=== PATIENT | female | born 1990 | race Caucasian/White ===

== ENCOUNTER 2020-12-30 12:06 | Inpatient (IN) | payer BC ==
[~2020-12-30] VITALS: Ht 154.9 cm; Wt 92.7 kg
[2020-12-30] MEDS ORDERED: ONDANSETRON PF 4 MG/2 ML VIAL. IVP ONE ×2 (12:45→15:00)
[2020-12-30] MEDS ORDERED: IV NORMAL SALINE 1,000ML 1,000 ML IV ONE ×2 (12:45→15:45)
[2020-12-30 12:48] LABS: BASO % 0 % (0-3); EOS % 0 % (0-3); HEMATOCRIT 48.3 % (36.0-47.0); HEMOGLOBIN 16.8 g/dL (12.0-15.5); LYMPH # 0.9 x10^3/uL (1.0-4.8); LYMPH % 24 % (24-48); MEAN CORPUSCULAR HEMOGLOBIN 32 pg (25-35); MEAN CORPUSCULAR HGB CONC 35 g/dL (31-37); MEAN CORPUSCULAR VOLUME 91 fL (79-100); MONO # 0.3 x10^3/uL (0.0-1.1); MONO % 7 % (0-9); NEUT # 2.7 x10^3uL (1.8-7.7); NEUT % 69 % (31-73); PLATELET COUNT 128 x10^3/uL (140-400); RED CELL DISTRIBUTION WIDTH 12.9 % (11.5-14.5); WHITE BLOOD COUNT 3.9 x10^3/uL (4.0-11.0)
[2020-12-30 12:50] LABS: CALCIUM 8.6 mg/dL (8.5-10.1); CREATININE 0.7 mg/dL (0.6-1.0); GFR 99.6; POTASSIUM 3.9 mmol/L (3.5-5.1)
--- NOTE | 2020-12-30 12:51 | PHYS DOC ---
Past History Past Surgical History: No Surgical History (JOSE ANTONIO PEREZ APRN) Alcohol Use: None (JOSE ANTONIO PEREZ APRN) General Adult EDM: Chief Complaint: COUGH HPI: HPI: Patient is a 30-year-old female who is Covid positive diagnosed on Wednesday who presents to the ER for cough, nausea, vomiting, nasal congestion/drainage, low- grade fluids started yesterday. No treatment prior to arrival. Patient reports intermittent shortness of breath. She denies any chest pain, blood in stools or vomit. She is tachycardic in the ER. Afebrile. (JOSE ANTONIO PEREZ APRN) Review of Systems: Review of Systems: 14 body systems of the review of systems have been reviewed. See HPI for pertinent positive and negative responses, otherwise all other systems are negative, nonpertinent or noncontributory (JOSE ANTONIO PEREZ APRN) Current Medications: Current Meds: Current Medications Medications (Trade) Dose Ordered Sig/Artur Start Time Stop Time Status Last Admin Dose Admin Ondansetron HCl (Zofran) 4 mg 1X ONCE 12/30/20 12:45 12/30/20 12:46 UNV Sodium Chloride 1,000 ml @ 1,000 mls/hr 1X ONCE 12/30/20 12:45 12/30/20 13:44 UNV (JOSE ANTONIO PEREZ APRN) Allergies: Allergies: Allergies Coded Allergies Type Severity Reaction Last Updated Verified latex Allergy Mild 12/30/20 Yes (JOSE ANTONIO PEREZ APRN) Physical Exam: PE: Constitutional: Well developed, well nourished, no acute distress, non-toxic appearance. [] HENT: Normocephalic, atraumatic, bilateral external ears normal, oropharynx moist, no oral exudates, nose normal. [] Eyes: PERRL, EOMI, conjunctiva normal, no discharge. [] Neck: Normal range of motion, no stridor Cardiovascular:Heart rate tachycardic rhythm, no murmur [] Lungs & Thorax: Bilateral breath sounds clear to auscultation [] Abdomen: Bowel sounds normal, soft, no tenderness, no masses, no pulsatile masses. [] Skin: Warm, dry, no erythema, no rash. [] Back: Normal range of motion Extremities: No tenderness, no cyanosis, no clubbing, ROM intact, no edema. [] Neurologic: Alert and oriented X 3, normal motor function, normal sensory function, no focal deficits noted. [] Psychologic: Affect normal, judgement normal, mood normal. [] (JOSE ANTONIO PEREZ APRN) Current Patient Data: Labs: Laboratory Tests Test 12/30/20 12:20 White Blood Count 3.9 x10^3/uL Red Blood Count 5.30 x10^6/uL Hemoglobin 16.8 g/dL Hematocrit 48.3 % Mean Corpuscular Volume 91 fL Mean Corpuscular Hemoglobin 32 pg Mean Corpuscular Hemoglobin Concent 35 g/dL Red Cell Distribution Width 12.9 % Platelet Count 128 x10^3/uL Neutrophils (%) (Auto) 69 % Lymphocytes (%) (Auto) 24 % Monocytes (%) (Auto) 7 % Eosinophils (%) (Auto) 0 % Basophils (%) (Auto) 0 % Neutrophils # (Auto) 2.7 x10^3uL Lymphocytes # (Auto) 0.9 x10^3/uL Monocytes # (Auto) 0.3 x10^3/uL Eosinophils # (Auto) 0.0 x10^3/uL Basophils # (Auto) 0.0 x10^3/uL Sodium Level 135 mmol/L Potassium Level 3.9 mmol/L Chloride Level 98 mmol/L Carbon Dioxide Level 26 mmol/L Anion Gap 11 Blood Urea Nitrogen 6 mg/dL Creatinine 0.7 mg/dL Estimated GFR (Cockcroft-Gault) 99.6 BUN/Creatinine Ratio 9 Glucose Level 323 mg/dL Calcium Level 8.6 mg/dL Total Bilirubin 0.7 mg/dL Aspartate Amino Transf (AST/SGOT) 151 U/L Alanine Aminotransferase (ALT/SGPT) 170 U/L Alkaline Phosphatase 116 U/L Troponin I Quantitative < 0.017 ng/mL Total Protein 7.2 g/dL Albumin 3.6 g/dL Albumin/Globulin Ratio 1.0 Current Medications Medications (Trade) Dose Ordered Sig/Artur Route PRN Reason Start Time Stop Time Status Last Admin Dose Admin Sodium Chloride 1,000 ml @ 1,000 mls/hr 1X ONCE IV 12/30/20 12:45 12/30/20 13:44 12/30/20 12:45 Ondansetron HCl (Zofran) 4 mg 1X ONCE IVP 12/30/20 12:45 12/30/20 12:46 DC 12/30/20 12:45 Vital Signs: Vital Signs Date Time Temp Pulse Resp B/P (MAP) Pulse Ox O2 Delivery O2 Flow Rate FiO2 12/30/20 12:25 99.4 133 18 149/97 95.0 (JOSE ANTONIO PEREZ APRN) EKG: EKG: EKG performed by ER staff at 1254 shows sinus tach, no STEMI. Read by Dr. Dickey at 1300. [] (JOSE ANTONIO PEREZ APRN) Radiology/Procedures: Radiology/Procedures: PROCEDURE: PORTABLE CHEST 1V XR CHEST 1V History: Short of air, cough, positive Covid. Comparison: None. Technique: Portable AP radiograph of the chest. Findings: The lungs are mildly hypoinflated. Subtle basilar opacities may represent atelectasis or airspace disease. No pleural effusion or pneumothorax. The cardiomediastinal silhouette and pulmonary vasculature are within normal limits. Osseous structures and soft tissues are unremarkable. Impression: 1. Hypoinflation with minimal bibasilar opacities which may represent atelectasis versus airspace disease. Electronically signed by: Michael Metzger MD (12/30/2020 1:26 PM) [id number] DICTATED AND SIGNED BY: MICHAEL METZGER MD DATE: 12/30/20 1324 CC: OPAL HURLEY DO; JOSE ANTONIO PEREZ APRN; PCP,NO ~MTH0 0[] (JOSE ANTONIO PEREZ APRN) Heart Score: C/O Chest Pain: No Risk Factors: Risk Factors: DM, Current or recent (<one month) smoker, HTN, HLP, family history of CAD, obesity. Risk Scores: Score 0 - 3: 2.5% MACE over next 6 weeks - Discharge Home Score 4 - 6: 20.3% MACE over next 6 weeks - Admit for Clinical Observation Score 7 - 10: 72.7% MACE over next 6 weeks - Early Invasive Strategies (JOSE ANTONIO PEREZ APRN) Course & Med Decision Making: Course & Med Decision Making Pertinent Labs and Imaging studies reviewed. (See chart for details) Patient is a 30-year-old female Covid positive complaining of cough, nausea, vomiting. Patient was noted to be tachycardic in the ER. Blood work today normal, chest x-ray, EKG. Patient treated with fluids and nausea medication. Patient to be p.o. challenged in the ER. Lab work results are consistent with a COVID-19 viral illness. On room air patient's O2 sats were 89 to 90%. She was placed on 2 L and her O2 sats were 95%. Patient was titrated off of oxygen and her O2 sats are 89 to 91%. Patient may require home oxygen and hospital staff are attempting to discharge patient home with oxygen. patient's chest x-ray showed right shows mild bibasilar opacities. Patient treated with fluids and nausea medication. She was given a dose of Solu-Medrol and antibiotic in the ER. I discussed patients case with Dr. Vigil who agreed to admit patient under his care to med telemetry with oxygen supplementation. Patient is agreeable to plan of care at this time. (JOSE ANTONIO PEREZ APRN) Course & Med Decision Making I was the Attending physician on the above date of service of this patient. This patient was evaluated, examined, treated, and dispositioned from the emergency department by the mid-level practitioner. I reviewed case and agreed need for admission due to continued hypoxia requiring supplemental oxygen Electronically signed, Opal Hurley DO (OPAL HURLEY DO) Laura Disclaimer: Laura Disclaimer: This electronic medical record was generated, in whole or in part, using a voice recognition dictation system. (JOSE ANTONIO PEREZ APRN) Departure Departure: Impression: Primary Impression: Pneumonia due to COVID-19 virus Additional Impression: Hypoxia Disposition: ADMITTED INPATIENT Admitting Physician: Gustavo Vigil (OPAL HURLEY DO) Condition: STABLE Referrals: PCP,JONO (PCP) JOSE ANTONIO PEREZ APRN Dec 30, 2020 12:51 OPAL HURLEY DO Dec 31, 2020 08:06
[2020-12-30 12:56] LABS: ALBUMIN 3.6 g/dL (3.4-5.0); TOTAL BILIRUBIN 0.7 mg/dL (0.2-1.0); TOTAL PROTEIN 7.2 g/dL (6.4-8.2)
--- NOTE | 2020-12-30 13:04 | EKG ---
[address] [address] Test Date: 2020-12-30 Test Time: 12:54:34 Pat Name: JAMIL MCNAMARA Department: Room: Gender: F Materials Handler: CAMELIA : 1990 Requested By: JOSE ANTONIO PEREZ Order Number: [id number] Reading MD: Measurements Intervals [place] Rate: 123 P: 31 OK: 126 QRS: -1 QRSD: 82 T: 11 QT: 312 QTc: 452 Interpretive Statements SINUS TACHYCARDIA LEFTWARD AXIS R-S TRANSITION ZONE IN V LEADS DISPLACED TO THE LEFT OTHERWISE NORMAL ECG RI6.02 No previous ECG available for comparison
--- NOTE | 2020-12-30 13:28 | RAD ---
XR CHEST 1V History: Short of air, cough, positive Covid. Comparison: None. Technique: Portable AP radiograph of the chest. Findings: The lungs are mildly hypoinflated. Subtle basilar opacities may represent atelectasis or airspace dis ease. No pleural effusion or pneumothorax. The cardiomediastinal silhouette and pulmonary vasculature are within normal limits. Osseous structures and soft tissues are unremarkable. Impression: 1. Hypoinflation with minimal bibasilar opacities which may represent atelectasis versus airspace di sease. Electronically signed by: Michael Marcano MD (12/30/2020 1:26 PM) [id number]
[2020-12-30] MEDS ORDERED: DEXAMETHASONE SOD PHOS 10 MG/ML VIAL. PO ONE (14:00)
[2020-12-30] MEDS ORDERED: methylPREDNISolone SOD SUCC PF 40 MG/ML VIAL. IV ONE (14:00)
[2020-12-30] MEDS ORDERED: AZIT250T6 PO (14:02)
[2020-12-30] MEDS ORDERED: AZITHROMYCIN 250 MG TABLET. PO ONE (15:00)
[2020-12-30] MEDS: IV NORMAL SALINE 1,000ML 1,000 ML IV SCH ×2 (15:00→22:45)
[2020-12-30] MEDS ORDERED: cefTRIAXone SODIUM 1 GM VIAL ONE (16:03)
[2020-12-30] MEDS ORDERED: IV NORMAL SALINE 50ML 50 ML ONE (16:03)
[2020-12-30] MEDS: ONDANSETRON PF 4 MG/2 ML VIAL. IVP PRN ×2 (16:13→19:57)
[2020-12-30 17:44] VITALS: BP 105/63
[2020-12-30 19:36] LABS: BACTERIA,URINE 0 /HPF (0-FEW); BILIRUBIN,URINE NEG (NEG); CLARITY,URINE CLEAR; COLOR,URINE YELLOW; GLUCOSE,URINE 500 mg/dL (NEG); NITRITE,URINE NEG (NEG); SQUAMOUS EPITHELIAL CELL,UR MANY /LPF; UROBILINOGEN,URINE 0.2 mg/dL (0.2 mg/dL); WBC,URINE OCC /HPF (0-4)
[2020-12-30 19:40] VITALS: BP 110/74
[2020-12-30] MEDS: DEXAMETHASONE 4 MG TABLET PO SCH (19:57)
[2020-12-30] MEDS ORDERED: ACETAMINOPHEN 500 MG TABLET PO PRN (20:00)
[2020-12-30 23:24] VITALS: BP 107/73
[2020-12-31] MEDS: IV NORMAL SALINE 1,000ML 1,000 ML IV SCH (03:46)
[2020-12-31 06:06] VITALS: BP 95/61
[2020-12-31] MEDS: DEXAMETHASONE 4 MG TABLET PO SCH (07:52)
--- NOTE | 2020-12-31 08:54 | DS ---
DATE OF DISCHARGE: 12/31/2020 ATTENDING PHYSICIAN: Dr. Vigil. FINAL DISCHARGE DIAGNOSES: 1. COVID-19 pneumonia. 2. Slight infiltrate on chest x-ray. 3. Hyperglycemia due to steroid therapy. HISTORY AND PHYSICAL: The patient is a 30-year-old female who was not vaccinated. She tested positive for COVID-19, 4 days prior to coming in, she had some cough, congestion and marginal saturations of oxygen between 89% and 90%. PHYSICAL EXAMINATION: Please see my dictated note. PERTINENT LABORATORY AND X-RAY STUDIES: CBC showed a normal hemoglobin of 16.8 grams, white count slightly diminished at 3900. Her nonfasting blood sugar was 300 due to her steroid therapy prior to being drawn. Chest x-ray showed very slight infiltrate in the bases. COURSE IN THE HOSPITAL: She was admitted, started on empiric steroids, supplemental oxygen, and gradually this was weaned off. She only required 1 to 2 liters. She had adequate saturation. When I saw her the next morning, her lungs were clear. She felt well. She wanted to go home. I recommended prednisone 40 mg daily for 5 more days and stop. She is on quarantine and supposed to go back to work when she tests positive. She was discharged then from our hospital in stable condition with explicit instruction and followup care. OLY DR: Tyler TID: [id number]
--- NOTE | 2020-12-31 09:13 | HP ---
ATTENDING PHYSICIAN: Dr. Vigil. CHIEF COMPLAINT: Cough. HISTORY OF PRESENT ILLNESS: The patient is a 30-year-old female who was tested positive for COVID 4 days previously. She presented to the ER with cough, nausea, nasal congestion and slightly diminished oxygen saturation of 89% on room air. Chest x-ray in the ED demonstrated very slight hazy infiltrate at the bases. She is not toxic. She was admitted because she felt poorly and required some supplemental oxygen. She has not had her vaccines. PAST MEDICAL HISTORY: Significant for no major illnesses. SHE IS ALLERGIC TO LATEX. No prescription medication. SOCIAL HISTORY: She is a nonsmoker, nondrinker. 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 FAMILY HISTORY: Noncontributory. REVIEW OF SYSTEMS: Significant for the COVID exposure on Wednesday. No cyanosis, chest pain, palpitation. All other systems reviewed and turned to be negative. PHYSICAL EXAMINATION: GENERAL: When I saw her, this is a pleasant young female. INITIAL VITAL SIGNS: Showed a blood pressure of 105/63, pulse is 92 and regular. She was afebrile, oxygen saturation 92% on 2 liters. HEENT: Head is without trauma. Pupils are reactive. Sclerae nonicteric. Oropharynx clear. NECK: Supple, no bruits. LUNGS: Good breath sounds. Very minimal rhonchi in the left base. CARDIOVASCULAR: Shows regular heart tones. No gallops. ABDOMEN: Soft, obese, protuberant. No organomegaly. Bowel sounds are hypoactive. EXTREMITIES: Show no cyanosis or edema. NEUROLOGIC: Focally intact. SKIN: Warm and dry. PERTINENT LABORATORY STUDIES: Hemoglobin is 16.8 g/dL with a white count of 3900. Electrolytes within normal range. Nonfasting blood sugar was 323. Troponin was negative. Transaminases slightly elevated. ASSESSMENT: 1. A 30-year-old female with COVID exposure. 2. Incidental finding of hyperglycemia. No history of diabetes. 3. Hypoxemia. PLAN: 1. Admit to the inpatient unit. 2. Decadron has been ordered. 3. Supplemental oxygen. ANATOLY/MICAELA BULL: Tyler TID: [id number]
[2021-01-01] MEDS ORDERED: AZIT250T PO (16:12)
== END 2020-12-31 09:25 | disposition home or self-care (01) | DRG 177 ==
LOC: ER 12:06 → 1 SOUTH 14:49
PROVIDERS: ADMIT Hospitalist; ATTEND Hospitalist
DX: U07.1 COVID-19 (principal); J12.82 Pneumonia due to coronavirus disease 2019; R09.02 Hypoxemia; R73.9 Hyperglycemia, unspecified; T38.0X5A Adverse effect of glucocorticoids and synthetic analogues, initial encounter; Y92.89 Other specified places as the place of occurrence of the external cause; Z91.040 Latex allergy status
CPT/HCPCS: 36415; 71045; 80053; 81001; 84484; 85025; 93005; 96374; 96375; J0696; J2405; J2920; J8540; 99285-25; J7030

== ENCOUNTER 2021-01-01 12:46 | Emergency (ER) | payer BC ==
[~2021-01-01] VITALS: Ht 154.9 cm; Wt 91.0 kg
[~2021-01-01 12:46] MED LIST: AZIT250T6 PO
--- NOTE | 2021-01-01 13:31 | PHYS DOC ---
Past History Past Surgical History: No Surgical History Alcohol Use: None General Adult EDM: Chief Complaint: SHORTNESS OF BREATH HPI: HPI: Patient is a [age] year old [sex] who presents with [] Review of Systems: Review of Systems: Constitutional: Denies fever or chills Eyes: Denies redness or eye pain HENT: Denies nasal congestion or sore throat Respiratory: Denies cough or shortness of breath Cardiovascular: Denies chest pain or palpitations GI: Denies abdominal pain, nausea, or vomiting : Denies dysuria or hematuria Musculoskeletal: Denies back pain or joint pain Integument: Denies rash or skin lesions Neurologic: Denies headache, focal weakness or sensory changes Complete systems were reviewed and found to be within normal limits, except as documented in this note. Current Medications: Current Meds: Current Medications Medications (Trade) Dose Ordered Sig/Artur Start Time Stop Time Status Last Admin Dose Admin Iohexol (Omnipaque 350 Mg/ml) 100 ml 1X ONCE 01/01/21 13:30 01/01/21 13:31 UNV Sodium Chloride 1,000 ml @ 1,000 mls/hr 1X ONCE 01/01/21 13:15 01/01/21 14:14 Allergies: Allergies: Allergies Coded Allergies Type Severity Reaction Last Updated Verified latex Allergy Mild 12/30/20 Yes Physical Exam: PE: Constitutional: Well developed, well nourished, no acute distress, non-toxic appearance HENT: Normocephalic, atraumatic Eyes: PERRL, EOMI, conjunctiva normal, no discharge Neck: Normal range of motion, no tenderness, supple Lungs & Thorax: No respiratory distress, equal chest rise and fall Abdomen: Soft, no tenderness Skin: Warm, dry, no erythema, no rash Back: No tenderness, no CVA tenderness Extremities: No tenderness, ROM intact, no edema Neurologic: Alert and oriented X 3, normal motor function, normal sensory function, no focal deficits noted Psychologic: Affect normal, judgment normal EKG: EKG: @1321 NSR at 100bpm, NO ST elevation, QRS 86ms, QT/QTc 346/449ms Radiology/Procedures: Radiology/Procedures: PROCEDURE: CT ANGIOGRAPHY CHEST Examination: CT angiography chest with IV contrast HISTORY: Shortness of breath, hypoxia COMPARISON: None available TECHNIQUE: Axial CT angiographic images of chest were performed with IV contrast. Coronal and sagittal 3-D MIP reformats are performed Exposure: One or more of the following individualized dose reduction techniques were utilized for this examination: 1. Automated exposure control 2. Adjustment of the mA and/or kV according to patient size 3. Use of iterative reconstruction technique FINDINGS: The visualized thyroid gland grossly appears unremarkable. Central airways are patent. Few enlarged mediastinal lymph nodes identified with the largest measuring 2.1 cm in the subcarinal region. There is no evidence of filling defect identified in the main pulmonary arterial trunk and right and left main pulmonary arteries and the visualized lobar, segmental pulmonary arteries. Numerous diffuse groundglass airspace opacities identified throughout the bilateral lungs. Mild decreased attenuation noted in the liver likely hepatic steatosis. The adrenals, spleen grossly appears unremarkable. Mild degenerative changes thoracic spine. IMPRESSION: 1. No evidence of pulmonary embolism. 2. Numerous diffuse groundglass airspace opacities identified throughout the bilateral lungs likely infiltrates/ covid pneumonia. 3. Few enlarged mediastinal lymph nodes probably reactive lymphadenopathy. Electronically signed by: Tyler Mendoza MD (01/01/2021 2:05 PM) [id number] Heart Score: C/O Chest Pain: N/A Course & Med Decision Making: Course & Med Decision Making Pertinent Labs and Imaging studies reviewed. (See chart for details) [] Laura Disclaimer: Laura Disclaimer: This electronic medical record was generated, in whole or in part, using a voice recognition dictation system. Departure Departure: Impression: Primary Impression: Pneumonia due to COVID-19 virus Additional Impression: Hypoxia Disposition: 01 HOME / SELF CARE / HOMELESS Condition: STABLE Referrals: PCPJONO (PCP) Patient Instructions: Incentive Spirometer, Oxygen Use at Home, Viral Syndrome Additional Instructions: You have been tested for or diagnosed with COVID-19. It is an infection caused by a new type of coronavirus. COVID-19 will cause cold-like or mild flu symptoms in most. It can cause more severe symptoms like problems breathing in some. There is no treatment for COVID-19. The body will clear the infection over time. Self-care will help to ease discomfort. Steps to Take: Self-Care Rest as needed. Healthy habits may help you feel better. Steps include: Choose healthy foods including fruits and vegetables. Drink water throughout the day. Get plenty of sleep each night. If you smoke, try to quit. It may ease breathing. Avoid alcohol. Keep Others Healthy The virus can spread to others. Droplets are released every time you sneeze or cough. The droplets can get into the mouth, nose, or eyes of people near you and lead to infection. To lower the chances of spreading COVID-19 to others: Stay at home until your doctor has said it is safe to leave. If you tested positive this will mean staying isolated until both of the following are true: At least 7 days have passed since the start of illness. You are free of fever for at least 72 hours without the use of medicine. During this time: - Avoid public areas, events, or transportation. Do not return to work or school until your doctor has said it is safe to do so. - Call ahead if you need to go to a medical center. Let them know you may have COVID-19. It will help them guide you where to go. They may also ask you to wear a facemask when you come to the office. - If you call for emergency medical services, let them know you may have COVID- 19. While at home: - Try to avoid close contact with others. Stay about 6 feet away. - If possible, spend most of your time in a separate room from others. - Use a face mask if you will be in close contact with others such as sharing a room or vehicle. - Have someone wipe down common surfaces in the home. Use household coo [employer] every day on areas like doorknobs, counters, or sinks. - Cough or sneeze into a tissue. Throw the tissue away right after use. If a tissue is not available, cough or sneeze into your elbow. - Wash your hands often. Wash them after sneezing or coughing. Use soap and water and wash for at least 20 seconds. Alcohol based hand telephone cleaner can be used if soap and water is not available. - Do not prepare food for others. Avoid sharing personal items like forks, spoons, or toothbrushes. - Avoid close contact with pets while you are sick. There is no evidence of the virus passing to pets. This is a safety step until more is known about this virus. Isolation can be frustrating. Social interaction can help. Keep in touch with friends and family through phone and tech options. You can still interact with others in your home, just keep a safe distance of about 6 feet. Follow-up: Your doctors office will check in with you to see if there are any changes in your health. You may be asked to keep track of symptoms to share with them. They will also let you know when you are clear to be in public again. Problems to Look Out For: Contact your doctor if your recovery is not going as you expect. Get emergency care if you have problems such as: - Trouble breathing - Nonstop chest pain or pressure - Changes in awareness, confusion, or problems waking - Lips or face have bluish color - Worsening of symptoms If you think you have an emergency, call for emergency medical services right away. As taken from [facility] Azithromycin (ZITHROMAX) 250 Mg Tablet 1 PKG PO UD for COVID pneumonia, #6 TAB Prov: MELISSA ZAPATA DO 01/01/21 MELISSA ZAPATA DO Jan 01, 2021 13:31
--- NOTE | 2021-01-01 13:32 | EKG ---
[address] [address] Test Date: 2021-01-01 Test Time: 13:21:09 Pat Name: JAMIL MCNAMARA Department: Room: Gender: F Manufacturing Manager: CM : 1990 Requested By: MELISSA ZAPATA Order Number: [id number] Reading MD: Measurements Intervals [place] Rate: 100 P: -24 SC: 132 QRS: 2 QRSD: 86 T: 12 QT: 346 QTc: 449 Interpretive Statements SINUS RHYTHM R-S TRANSITION ZONE IN V LEADS DISPLACED TO THE LEFT OTHERWISE NORMAL ECG RI6.02 No previous ECG available for comparison
[2021-01-01] MEDS: IOHEXOL 350 MG/ML 100 ML VIAL. IV ONE (13:42)
[2021-01-01] MEDS: IV NORMAL SALINE 1,000ML 1,000 ML IV ONE (13:58)
[2021-01-01 14:07] LABS: BASO % 0 % (0-3); EOS % 0 % (0-3); HEMATOCRIT 44.5 % (36.0-47.0); HEMOGLOBIN 15.3 g/dL (12.0-15.5); LYMPH # 0.6 x10^3/uL (1.0-4.8); LYMPH % 9 % (24-48); MEAN CORPUSCULAR HEMOGLOBIN 32 pg (25-35); MEAN CORPUSCULAR HGB CONC 34 g/dL (31-37); MEAN CORPUSCULAR VOLUME 92 fL (79-100); MONO # 0.2 x10^3/uL (0.0-1.1); MONO % 3 % (0-9); NEUT # 6.5 x10^3uL (1.8-7.7); NEUT % 89 % (31-73); PLATELET COUNT 173 x10^3/uL (140-400); RED BLOOD COUNT 4.84 x10^6/uL (3.50-5.40); RED CELL DISTRIBUTION WIDTH 12.9 % (11.5-14.5); WHITE BLOOD COUNT 7.4 x10^3/uL (4.0-11.0)
--- NOTE | 2021-01-01 14:07 | RAD ---
Examination: CT angiography chest with IV contrast HISTORY: Shortness of breath, hypoxia COMPARISON: None available TECHNIQUE: Axial CT angiographic images of chest were performed with IV contrast. Coronal and sagitta l 3-D MIP reformats are performed Exposure: One or more of the following individualized dose reduction techniques were utilized for thi s examination: 1. Automated exposure control 2. Adjustment of the mA and/or kV according to patient size 3. Use of iterative reconstruction technique FINDINGS: The visualized thyroid gland grossly appears unremarkable. Central airways are patent. Few enlarged m ediastinal lymph nodes identified with the largest measuring 2.1 cm in the subcarinal region. There i s no evidence of filling defect identified in the main pulmonary arterial trunk and right and left ma in pulmonary arteries and the visualized lobar, segmental pulmonary arteries. Numerous diffuse ground glass airspace opacities identified throughout the bilateral lungs. Mild decreased attenuation noted in the liver likely hepatic steatosis. The adrenals, spleen grossly appears unremarkable. Mild degene rative changes thoracic spine. IMPRESSION: 1. No evidence of pulmonary embolism. 2. Numerous diffuse groundglass airspace opacities identified throughout the bilateral lungs likely i nfiltrates/ covid pneumonia. 3. Few enlarged mediastinal lymph nodes probably reactive lymphadenopathy. Electronically signed by: Tyler Mendoza MD (01/01/2021 2:05 PM) [id number]
[2021-01-01 14:11] LABS: CALCIUM 7.9 mg/dL (8.5-10.1); CREATININE 0.7 mg/dL (0.6-1.0); GFR 99.6; POTASSIUM 4.5 mmol/L (3.5-5.1)
[2021-01-01 14:28] LABS: ALBUMIN 3.1 g/dL (3.4-5.0); ALBUMIN/GLOBULIN RATIO 1.1 (1.0-1.7); MAGNESIUM 2.7 mg/dL (1.8-2.4); TOTAL BILIRUBIN 0.6 mg/dL (0.2-1.0)
[2021-01-01 15:02] VITALS: BP 124/67
[2021-01-01] MEDS ORDERED: AZIT250T PO (16:12)
[2021-01-02] MEDS ORDERED: ACETAMINOPHEN 325 MG TABLET PO PRN (18:30)
[2021-01-03] MEDS ORDERED: DEXAMETHASONE SOD PHOS 10 MG/ML VIAL. IVP SCH (09:00)
[2021-01-03] MEDS ORDERED: ENOXAPARIN 40 MG/0.4 ML SYRINGE. SQ SCH (09:00)
[2021-01-03] MEDS ORDERED: AZITHROMYCIN 250 MG TABLET. PO SCH (09:00)
== END 2021-01-01 16:58 | disposition home or self-care (01) ==
LOC: ER 12:46
DX: U07.1 COVID-19 (principal); J12.82 Pneumonia due to coronavirus disease 2019; R09.02 Hypoxemia; Z91.040 Latex allergy status
CPT/HCPCS: 36415; 71275; 80053; 82553; 83605; 83735; 83880; 84484; 85025; 87040; 93005; 96360; 99285; J7030; Q9967

== ENCOUNTER 2021-01-01 20:53 | Inpatient (IN) | payer BC ==
[~2021-01-01] VITALS: Ht 154.9 cm; Wt 89.9 kg
[~2021-01-01 20:53] MED LIST changes: +AZIT250T PO
[2021-01-01] MEDS ORDERED: AZITHROMYCIN 500 MG in IV NORMAL SALINE 250ML 250 ML IV ONE (21:30)
[2021-01-01] MEDS ORDERED: ONDANSETRON PF 4 MG/2 ML VIAL. IVP ONE (21:30)
[2021-01-01] MEDS ORDERED: DEXAMETHASONE SOD PHOS 10 MG/ML VIAL. IVP ONE (21:30)
[2021-01-01] MEDS ORDERED: IV NORMAL SALINE 250ML 250 ML ONE (22:01)
[2021-01-01] MEDS ORDERED: AZITHROMYCIN 500 MG VIAL. IV ONE (22:01)
[2021-01-01] MEDS ORDERED: ACETAMINOPHEN 500 MG TABLET PO ONE (23:15)
[2021-01-02] VITALS (8 sets, daily range): BP systolic 105–119; BP diastolic 49–78
[2021-01-02] MEDS ORDERED: ACETAMINOPHEN 500 MG TABLET PO PRN (02:30)
[2021-01-02] MEDS: ONDANSETRON PF 4 MG/2 ML VIAL. IVP PRN ×2 (06:53→20:39)
--- NOTE | 2021-01-02 07:25 | PHYS DOC ---
Past History Past Medical History: No Pertinent History Past Surgical History: Other Additional Past Surgical Histo: LEFT KNEE Alcohol Use: None Drug Use: None General Adult EDM: Chief Complaint: SHORTNESS OF BREATH HPI: HPI: 30-year-old female with recent hospitalization for COVID-19 pneumonia and hypoxia presents after recent discharge home with report of increased shortness of air and malaise which has been worse today. Patient had been noted to have low O2 sat down to 86% earlier today. A full work-up was performed in the emergency department here at [facility]. CT a chest was obtained with groundglass opacities. Other labs were obtained. Patient did require supplemental O2 in earlier visit. Case management from patient's prior hospitalization was able to secure a O2 tank for patient to go home with and for O2 company to deliver further oxygen treatment. Patient reports upon returning home she continued to have low O2 sats down to 86% despite use of nasal cannula up to 6 L. Patient reports she is just not getting better. Patient therefore presented again to the emergency department for further evaluation and treatment. Denies . Review of Systems: Review of Systems: Constitutional: Reports generalized malaise and subjective fever/chills Eyes: Denies redness or eye pain HENT: Denies nasal congestion or sore throat Respiratory: Reports cough and shortness of breath Cardiovascular: Denies chest pain or palpitations GI: Denies abdominal pain; reports nausea, vomiting, and diarrhea : Denies dysuria or hematuria Musculoskeletal: Reports back pain; denies joint pain Integument: Denies rash or skin lesions Neurologic: Denies headache, focal weakness or sensory changes Complete systems were reviewed and found to be within normal limits, except as documented in this note. Current Medications: Current Meds: Current Medications Medications (Trade) Dose Ordered Sig/Artur Start Time Stop Time Status Last Admin Dose Admin Acetaminophen (Tylenol) 500 mg PRN Q4HRS PRN 01/02/21 02:30 Azithromycin (Zithromax) 500 mg STK-MED ONCE 01/01/21 22:01 01/01/21 22:01 DC Azithromycin 500 mg/Sodium Chloride 250 ml @ 250 mls/hr Q24H 01/02/21 22:00 Dexamethasone Sodium Phosphate (Decadron) 10 mg 1X ONCE 01/01/21 21:30 01/01/21 21:31 DC 01/01/21 22:30 10 MG Ondansetron HCl (Zofran) 4 mg PRN Q4HRS PRN 01/01/21 21:30 01/02/21 21:29 01/02/21 06:53 4 MG Sodium Chloride 250 ml @ As Directed STK-MED ONCE 01/01/21 22:01 01/01/21 22:01 DC Allergies: Allergies: Allergies Coded Allergies Type Severity Reaction Last Updated Verified latex Allergy Mild 12/30/20 Yes Physical Exam: PE: Constitutional: Well developed, well nourished, no acute distress, non-toxic appearance HENT: Normocephalic, atraumatic Eyes: Conjunctiva normal, no discharge Neck: Normal range of motion, supple Lungs & Thorax: No respiratory distress, equal chest rise and fall Abdomen: Soft, no tenderness Skin: Warm, dry, no erythema, no rash Back: Low lumbar tenderness, no CVA tenderness Extremities: No tenderness, ROM intact, no edema Neurologic: Alert and oriented X 3, normal motor function, normal sensory function, no focal deficits noted Psychologic: Affect anxious, judgment normal Current Patient Data: Labs: Laboratory Tests Test 01/01/21 23:10 01/02/21 01:13 Lactic Acid Level 1.4 mmol/L (0.4-2.0) SARS-CoV-2 Antigen (Rapid) Negative (NEGATIVE) Vital Signs: Vital Signs Date Time Temp Pulse Resp B/P (MAP) Pulse Ox O2 Delivery O2 Flow Rate FiO2 01/02/21 06:50 83 28 124/71 (88) 92 Venturi Mask 15.0 01/02/21 00:19 99.4 EKG: EKG: [] Radiology/Procedures: Radiology/Procedures: [] Heart Score: C/O Chest Pain: N/A Course & Med Decision Making: Course & Med Decision Making Patient presents with failed outpatient therapy after being assessed today and started on home O2 due to hypoxia secondary to Covid pneumonia. This is the third visit to the emergency department for same. Patient had originally been admitted to the hospital and subsequently discharged. There is concern patient would require oxygen however patient was able to maintain sats greater than 92%. Patient subsequently discharged home. Patient now hypoxic down to 86%. Required use of Venturi mask to improve oxygen saturation with higher O2 flow. Patient had fully been worked up earlier today with CTA chest being negative. Lactic acid at that time was slightly elevated. Upon arrival to the ER patient did have repeat lactic acid which was normal. Empiric azithromycin initiated. Patient had previously received steroid. Given failed outpatient therapy patient requiring admission for further evaluation and treatment. Discussed with Dr. Jacinto (hospitalist) who is in agreement with admission. Discussed findings and plan with patient, who acknowledges understanding and agreement. COVID-19 CRITERIA: The patient was evaluated during the global COVID-19 pandemic, and that diagnosis was suspected/considered upon their initial presentation. Their evaluation, treatment and testing was consistent with current guidelines for patients who present with complaints or symptoms that may be related to COVID-19. Dragon Disclaimer: Dragon Disclaimer: This electronic medical record was generated, in whole or in part, using a voice recognition dictation system. Departure Departure: Impression: Primary Impression: Pneumonia due to COVID-19 virus Additional Impressions: Hypoxia Failure of outpatient treatment Disposition: ADMITTED INPATIENT Admitting Physician: María Elena Jacinto Condition: GUARDED Referrals: PCP,NO (PCP) COVID-19 Assessment COVID-19 Patient Risks: Age 65 or older: No Sign of co-morbidity: Yes Exp to person + for COVID: Yes Exp to PUI: No Travel from affected area: No Lower respiratory symptoms: Yes Fever: No Other: Yes PPE Use: Full PPE with N95 mask or PAPR: Yes Critical Care Time Critical care time was 30 minutes which includes time at bedside, spent in discussion of patient's care with specialists and/or family members, with interpretation of laboratory and/or radiological studies and is exclusive of procedures. MELISSA ZAPATA DO Jan 02, 2021 07:25
--- NOTE | 2021-01-02 08:48 | NUR ---
Patient given breakfast tray
[2021-01-02] MEDS ORDERED: ACETAMINOPHEN 325 MG TABLET PO PRN (17:45)
--- NOTE | 2021-01-02 19:00 | NUR ---
The patient, JAMIL MCNAMARA, 30 y/o, F admitted by FLOWER GRACIA MD, was given written information regarding hospital policies, unit procedures and contact persons. Valuables were checked and logged. Call light at bedside.
[2021-01-02] MEDS: FAMOTIDINE 20 MG TABLET PO SCH (20:39)
[2021-01-02] MEDS: ASCORBIC ACID 1,000 MG TABLET PO SCH (20:39)
[2021-01-02] MEDS ORDERED: REMDESIVIR LOAD in IV NORMAL SALINE 250ML TV IV ONE (21:00)
[2021-01-02] MEDS ORDERED: AZITHROMYCIN 500 MG in IV NORMAL SALINE 250ML 250 ML IV SCH (22:00)
[2021-01-02] MEDS: AZITHROMYCIN 500 MG in IV NORMAL SALINE 250ML 250 ML IV SCH (22:32)
[2021-01-03] VITALS (24 sets, daily range): BP systolic 91–114; BP diastolic 59–84
[2021-01-03] MEDS ORDERED: ANTI-COAG MONITOR BY PHARMACY. MC PRN (00:15)
[2021-01-03] MEDS: DEXAMETHASONE SOD PHOS 10 MG/ML VIAL. IV SCH ×2 (00:18→09:36)
[2021-01-03] MEDS: ENOXAPARIN ** NOTE DOSE ** SYRINGE SQ SCH ×2 (00:19→09:39)
[2021-01-03 00:28] LABS: BGAS PH 7.39 (7.35-7.45)
--- NOTE | 2021-01-03 01:39 | NUR ---
Pt has been having an increase work of breathing since she has arrived to the unit. RT has been at bedside several times throughout this shift. We were talking about going from a venti mask at 15 liters 50% to titrating the high flow nasal cannula from 13 liters to help with pts work of breathing. Pt's RR has been in the 40's since admission. Notified MD about pt's status and MD ordered BiPap with a blood gas. BiPap was placed at 0018. Pt's work of breathing is still heavy however RR drops to the 20's-30's. Pt is sleeping and resting comfortably. Got orders for transfer; however there are no beds at this time at [facility].
[2021-01-03] MEDS ORDERED: ONDANSETRON PF 4 MG/2 ML VIAL. IVP PRN (03:30)
[2021-01-03] MEDS ORDERED: IBUPROFEN 600 MG TABLET. PO PRN (03:30)
[2021-01-03 06:35] LABS: BASO % 0 % (0-3); EOS % 0 % (0-3); HEMATOCRIT 43.2 % (36.0-47.0); HEMOGLOBIN 14.6 g/dL (12.0-15.5); LYMPH # 0.9 x10^3/uL (1.0-4.8); LYMPH % 13 % (24-48); MEAN CORPUSCULAR HEMOGLOBIN 32 pg (25-35); MEAN CORPUSCULAR HGB CONC 34 g/dL (31-37); MEAN CORPUSCULAR VOLUME 93 fL (79-100); MONO # 0.4 x10^3/uL (0.0-1.1); MONO % 6 % (0-9); NEUT # 5.4 x10^3uL (1.8-7.7); NEUT % 81 % (31-73); PLATELET COUNT 192 x10^3/uL (140-400); RED BLOOD COUNT 4.63 x10^6/uL (3.50-5.40); WHITE BLOOD COUNT 6.7 x10^3/uL (4.0-11.0)
[2021-01-03 06:44] LABS: CALCIUM 7.6 mg/dL (8.5-10.1); CREATININE 0.6 mg/dL (0.6-1.0); POTASSIUM 4.5 mmol/L (3.5-5.1)
[2021-01-03 06:50] LABS: ALBUMIN 2.5 g/dL (3.4-5.0); DIRECT BILIRUBIN 0.2 mg/dL (0.0-0.2); TOTAL BILIRUBIN 0.5 mg/dL (0.2-1.0); TOTAL PROTEIN 5.8 g/dL (6.4-8.2)
[2021-01-03] MEDS: ZINC SULFATE 220 MG CAPSULE. PO SCH (09:38)
[2021-01-03] MEDS: LACTOBACILLUS RHAMNOSUS GG 1 CAPSULE. PO SCH ×2 (09:39→21:00)
[2021-01-03] MEDS: FAMOTIDINE 20 MG TABLET PO SCH ×2 (09:39→21:00)
[2021-01-03] MEDS: CHOLECALCIFEROL (VITAMIN D3) 1,000 UNIT TABLET PO SCH (09:39)
[2021-01-03] MEDS: ASCORBIC ACID 1,000 MG TABLET PO SCH ×3 (09:41→21:00)
[2021-01-03] MEDS ORDERED: DEXTROSE 50% 25 GM / 50ML DISP.SYRIN. IV PRN (16:15)
[2021-01-03] MEDS: INSULIN LISPRO 300 UNITS/3 ML VIAL. SQ SCH (17:58)
--- NOTE | 2021-01-03 18:24 | HP ---
HISTORY OF PRESENT ILLNESS: The patient is a 30-year-old female patient who presented to the Emergency Room of [facility] with worsening shortness of breath, who apparently was admitted to [facility] on 12/30/2020 for COVID-19 pneumonia and hypoxemia and was discharged after 24-hour stay and she basically came back on 01/01/2021 with worsening shortness of breath and malaise, which has been worse. The patient has been noted to have low oxygen down to 86% earlier on the day of admission, a full workup was performed in the Emergency Department here at [facility]. CT of the chest was obtained with ground-glass opacities. Other lab work was obtained, did require supplemental oxygen earlier visit. Case management from the patient's prior hospitalization was able to secure an oxygen tank for patient to go home with and for oxygen company to deliver further oxygen in this treatment. The patient reports upon returning home, she continued to have low oxygen saturation down to 86% despite use of nasal cannula up to 6 liters. She stated that she is just not getting better. The patient therefore presented again to the Emergency Department for further evaluation and treatment. She has had lab work that were mostly unremarkable. Her imaging done on 12/30/[address] angio of the chest done on 01/01/2021 showed no evidence of pulmonary embolism; however, she has numerous diffuse ground-glass airspace opacities identified throughout the bilateral lungs, likely infiltrate/COVID pneumonia. She has also a few enlarged mediastinal lymph nodes, probably reactive lymphadenopathy and therefore, the patient was admitted to the ICU given that her oxygen requirement has dramatically worsened. PAST MEDICAL HISTORY: Unremarkable except polycystic ovary syndrome. PAST SURGICAL HISTORY: Left knee surgery. ALLERGIES: SHE IS ALLERGIC TO LATEX. MEDICATIONS: She takes Advil occasionally. FAMILY HISTORY: She has 1 sister and 1 brother, both younger. Her brother has congenital heart disease. Both parents are alive in their 50s and her mother has hypertension. SOCIAL HISTORY: She is , has no children. Never smoked. Drinks alcohol occasionally. Does not use any drugs. Her last menstrual period was started yesterday. 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 REVIEW OF SYSTEMS: The patient denied any blurring of vision, cataracts, glaucoma or macular degeneration. Denied any earache, tinnitus or sensory deafness. Denied any nosebleed, stuffy nose or postnasal drip. Denied any sore throat, sore tongue, toothache, hoarseness of voice or difficulty swallowing. She did have some nausea and also some diarrhea, but denied any hematemesis, melena or hematochezia. Denies any dysuria, frequency or hematuria. Denied any chest pain. Did complain of shortness of breath. PHYSICAL EXAMINATION: GENERAL: On arrival to the Emergency Room, she looked well and she was obviously tachypneic, hypoxic. VITAL SIGNS: Her heart rate was 104, blood pressure was 121/76, temperature was 102.9, respiratory rate was 24 and oxygen saturation was 92% on 6 liters of oxygen. HEENT: Showed normocephalic, atraumatic. NECK: Supple. HEART: Showed normal first and second heart sounds, no gallop, rub or murmur. CHEST: Shows central trachea, equal bilateral chest expansion, air entry, vesicular breath sounds with bilateral basal crepitation posteriorly. I could not appreciate any rhonchi. ABDOMEN: Distended, soft, nontender. NEUROLOGIC: She was grossly intact. LABORATORY DATA: Her lab work as of 01/01/2021 showed a white cell count of 7400, hemoglobin 15, hematocrit 44, MCV 92 and platelet count of 273,000. Her chemistry showed a serum sodium of 137, potassium 4.5, chloride 101, bicarbonate 28, anion gap of 8, BUN 14, creatinine 0.7. Estimated GFR was 99 mL per minute. Her glucose was 367. Her lactic acid was slightly high at 2.3, calcium was 7.9, magnesium 2.7. Total bilirubin, alkaline phosphatase normal. AST, ALT slightly elevated, total protein was 6, albumin was 3.1. ASSESSMENT AND PLAN: The patient was admitted with diagnosis of acute hypoxic respiratory failure, COVID-19 pneumonia and she was started on dexamethasone, ceftriaxone, Zithromax, remdesivir as well as Lovenox. We will follow her closely and obviously make necessary adjustment if her requirement of oxygen is higher and she might be transferred to [facility]. EVAN DR: Marshal TID: [id number]
[2021-01-03] MEDS: AZITHROMYCIN 500 MG in IV NORMAL SALINE 250ML 250 ML IV SCH (19:50)
[2021-01-03] MEDS: REMDESIVIR 100mg in NORMAL SALINE 250ML X 4 DAYS IV SCH (21:13)
--- NOTE | 2021-01-03 22:58 | NUR ---
Pt has been sleeping and does not want her night time medications at this time. Pt states, "I will let you know if I want them."
[2021-01-04] VITALS (23 sets, daily range): BP systolic 88–109; BP diastolic 57–77
--- NOTE | 2021-01-04 06:09 | NUR ---
Pt slept throughout most of the night. Pt desat to 86% at times and rebounds quickly. Pt has stated "I have never been told I have sleep apnea." Pt's heart rate at times dropped to 48 and went back to the lower 60's.
--- NOTE | 2021-01-04 08:29 | PN ---
DATE: 01/03/2021 SUBJECTIVE: The patient is resting, slightly ____ up in bed, in no apparent respiratory distress. When I saw her, she was on 15 liters by nonrebreather mask and also 15 liters by nasal cannula. After she got out of the bed to the bedside commode and ____ saturated, but on questioning her, she denied any chest pain. She had a cough that is with scant sputum. PHYSICAL EXAMINATION: GENERAL: When I saw her this afternoon, she was continued to be somewhat tachypneic, but there was no pallor, jaundice, cyanosis. No lymphadenopathy, no thyromegaly, no jugular venous distention. No limb edema. VITAL SIGNS: Her heart rate was 66, blood pressure was 91/60, temperature was 98.8, respiratory rate was 32 and oxygen saturation was 94% on 30 liters of oxygen. HEAD, EYES, EARS, NOSE, AND THROAT: Normocephalic, atraumatic. NECK: Supple. HEART: Showed normal first and second heart sounds, no gallop or murmur. CHEST: Showed central trachea, equal bilateral expansion, air entry, vesicular breath sounds, bilateral basal crepitation posteriorly. ABDOMEN: Slightly distended, soft, nontender. NEUROLOGIC: She continues to be encephalopathic, does open her eyes, tracks and responds appropriately. All cranial nerves intact. She moves extremities without difficulty. LABORATORY DATA: This showed a white cell count of 6700, hemoglobin 14.6, hematocrit 43, MCV 93, and platelet count of 192,000 with normal manual differential. Her chemistry showed a serum sodium of 138, potassium 4.5, chloride 104, bicarbonate 30, anion gap of 4, BUN 16, creatinine 0.6. Estimated GFR was 119 mL per minute. Her glucose was 305 and calcium was 7.6. Total bilirubin, AST, ALT, alkaline phosphatase were normal. Total protein 5.8, albumin 2.5. ASSESSMENT: 1. Acute hypoxic respiratory failure. 2. COVID-19 pneumonia. 3. Polycystic ovary syndrome, questionable hyperglycemia. PLAN: To monitor her blood sugar and she might require insulin. MARZENA/ARMOND/BERNARDO DR: Marshal TID: [id number]
[2021-01-04] MEDS: LACTOBACILLUS RHAMNOSUS GG 1 CAPSULE. PO SCH ×2 (09:56→20:15)
[2021-01-04] MEDS: ENOXAPARIN 40 MG/0.4 ML SYRINGE. SQ SCH (09:56)
[2021-01-04] MEDS: FAMOTIDINE 20 MG TABLET PO SCH ×2 (09:56→20:15)
[2021-01-04] MEDS: ZINC SULFATE 220 MG CAPSULE. PO SCH (09:56)
[2021-01-04] MEDS: DEXAMETHASONE SOD PHOS 10 MG/ML VIAL. IV SCH (09:57)
[2021-01-04] MEDS: ASCORBIC ACID 1,000 MG TABLET PO SCH ×3 (09:57→20:17)
[2021-01-04] MEDS: CHOLECALCIFEROL (VITAMIN D3) 1,000 UNIT TABLET PO SCH (09:57)
[2021-01-04] MEDS: INSULIN LISPRO 300 UNITS/3 ML VIAL. SQ SCH ×3 (09:58→18:32)
[2021-01-04] MEDS: ACETAMINOPHEN/CODEINE 300/30MG TABLET PO PRN ×2 (10:07→15:05)
[2021-01-04] MEDS: IPRATRPIUM/ALBUTEROL 0.5/2.5MG 3 ML NEBU. NEB PRN (15:05)
[2021-01-04] MEDS: ACETAMINOPHEN/CODEINE 300/30MG TABLET PO SCH (20:16)
[2021-01-04] MEDS: AZITHROMYCIN 500 MG in IV NORMAL SALINE 250ML 250 ML IV SCH (20:17)
[2021-01-04] MEDS: REMDESIVIR 100mg in NORMAL SALINE 250ML X 4 DAYS IV SCH (21:47)
[2021-01-05] VITALS (12 sets, daily range): BP systolic 93–118; BP diastolic 62–78
--- NOTE | 2021-01-05 03:24 | PN ---
DATE: 01/04/2021 SUBJECTIVE: The patient is resting, slightly propped up in bed, in no apparent distress. She continued to have severe hacking distress and dry cough during which she becomes very desaturated ____. She is now on 15 liters by nonrebreather mask as well as 15 liters by nasal cannula, maintaining her oxygen saturation at 96%. When she is asleep, she maintains oxygen saturation very well; however, with these episodes of dry hacking cough, she desaturates down to 88% despite all this oxygen. PHYSICAL EXAMINATION: GENERAL: When I examined her this morning, she looked well and was clearly in no apparent distress. There is no pallor, jaundice, cyanosis or thyromegaly. No jugular venous distention. No limb edema. VITAL SIGNS: Her heart rate was 62, blood pressure was 102/71, temperature was 98.6, respiratory rate was 31 and oxygen saturation was 98%. HEAD, EYES, EARS, NOSE, AND THROAT: Normocephalic, atraumatic. NECK: Supple. HEART: Normal first and second heart sounds, no gallop or murmur. CHEST: Shows central trachea, equal bilateral expansion, air entry, vesicular breath sounds with no crepitation or rhonchi anteriorly. She has bilateral basal crepitation posteriorly. ABDOMEN: Distended, soft, nontender. NEUROLOGIC: She is grossly intact. Her intake and output are incompletely recorded. ASSESSMENT: 1. Acute hypoxic respiratory failure. 2. COVID-19 pneumonia. 3. Polycystic ovary syndrome. 4. Probably steroid-induced hyperglycemia. PLAN: To continue with IV antibiotics, IV dexamethasone, and remdesivir. Continue to monitor blood sugar and adjust insulin as needed. DANNY DR: Marshal TID: [id number]
[2021-01-05 07:12] LABS: HEMATOCRIT 44.1 % (36.0-47.0); HEMOGLOBIN 14.9 g/dL (12.0-15.5); RED BLOOD COUNT 4.77 x10^6/uL (3.50-5.40); WHITE BLOOD COUNT 8.2 x10^3/uL (4.0-11.0)
[2021-01-05 07:34] LABS: ALBUMIN 2.6 g/dL (3.4-5.0); ALBUMIN/GLOBULIN RATIO 0.8 (1.0-1.7); CREATININE 0.6 mg/dL (0.6-1.0); POTASSIUM 4.6 mmol/L (3.5-5.1); TOTAL BILIRUBIN 0.5 mg/dL (0.2-1.0); TOTAL PROTEIN 5.9 g/dL (6.4-8.2)
[2021-01-05] MEDS ORDERED: BUDESONIDE 0.5 MG/2 ML NEBU NEB ONE (08:00)
[2021-01-05] MEDS: IPRATRPIUM/ALBUTEROL 0.5/2.5MG 3 ML NEBU. NEB PRN (10:29)
[2021-01-05] MEDS: DEXAMETHASONE SOD PHOS 10 MG/ML VIAL. IV SCH (10:29)
[2021-01-05] MEDS: ENOXAPARIN 40 MG/0.4 ML SYRINGE. SQ SCH (10:34)
[2021-01-05] MEDS: CHOLECALCIFEROL (VITAMIN D3) 1,000 UNIT TABLET PO SCH (10:34)
[2021-01-05] MEDS: ASCORBIC ACID 1,000 MG TABLET PO SCH ×3 (10:34→20:31)
[2021-01-05] MEDS: ACETAMINOPHEN/CODEINE 300/30MG TABLET PO PRN (10:35)
[2021-01-05] MEDS: LACTOBACILLUS RHAMNOSUS GG 1 CAPSULE. PO SCH ×2 (10:35→20:30)
[2021-01-05] MEDS: FAMOTIDINE 20 MG TABLET PO SCH ×2 (10:35→20:30)
[2021-01-05] MEDS: ZINC SULFATE 220 MG CAPSULE. PO SCH (10:35)
[2021-01-05] MEDS: INSULIN LISPRO 300 UNITS/3 ML VIAL. SQ SCH ×3 (10:37→17:00)
--- NOTE | 2021-01-05 12:00 | NUR ---
Patient had a coughing episode which resulted in the patient stating that she was experiencing chest pain rating it 8/10. The patient had been complaining of mid sternal chest pain with coughing earlier in the shift but she stated this pain was worse. Dr. Jacinto was called to update him on the patients status. Dr. Jacinto ordered an EKG, serial troponin's and a chest X-ray. After a several minutes the patient stated the chest pain had resolved. Serial Trops were negative. Chest xray showed a worsening of Covid pneumonia from previous image but after the coughing episode the patients oxygen saturations were reading 99-100% consistently therefore this RN and Shruthi RT made the decision to start titrating the patients Oxygen flow down. The patient was on 15L NC along with 15L Non rebreather mask. The NC was titrated down to zero liters therefore the mask was taken off and the patient was placed on NC at 8 liters per the decision of Shruthi RT. The patient continues to have oxygen saturation ranging from 91-94% on the 6L NC.
[2021-01-05 12:03] LABS: BGAS PH 7.4 (7.35-7.45)
--- NOTE | 2021-01-05 13:22 | EKG ---
[address] [address] Test Date: 2021-01-05 Test Time: 11:37:36 Pat Name: JAMIL MCNAMARA Department: Room: [facility] 1 Gender: F [employer] Operator: : [id number] Requested By: FLOWER GRACIA Order Number: [id number] Reading MD: Measurements Intervals Reading Rate: 60 P: [place]: QRS: 28 QRSD: 88 T: 20 QT: 462 QTc: 467 Interpretive Statements IRREGULAR RHYTHM, NO P-WAVE FOUND OTHERWISE NORMAL ECG RI6.01 No previous ECG available for comparison
--- NOTE | 2021-01-05 13:31 | RAD ---
AP chest. HISTORY: Chest pain, Covid positive AP view was taken of the chest. There are bilateral infiltrates consistent with Covid 19 pneumonia w hich have developed since the study of December 30. Heart is normal in size. There is no pleural effusi on. IMPRESSION: 1. Diffuse bilateral infiltrates. Electronically signed by: Ibrahima Guerrier MD (01/05/2021 1:28 PM) [id number]
[2021-01-05] MEDS: MELATONIN 3 MG TABLET PO PRN (20:30)
[2021-01-05] MEDS: AZITHROMYCIN 500 MG in IV NORMAL SALINE 250ML 250 ML IV SCH (20:30)
[2021-01-05] MEDS: ACETAMINOPHEN/CODEINE 300/30MG TABLET PO SCH (20:31)
--- NOTE | 2021-01-05 21:27 | PN ---
DATE: 01/05/2021 SUBJECTIVE: The patient is resting slightly propped up in bed, continued to be somewhat tachypneic. She is now on 15 liters by nonrebreather mask as well as 15 liters by nasal cannula, maintaining her oxygen saturation at 94-95%. She did complain of an episode of chest pain after having breathing treatment. OBJECTIVE: VITAL SIGNS: Her heart rate was noted to be irregular. However, we did an EKG, which showed that she was actually in sinus bradycardia. GENERAL: When I examined her, she looked well and was clearly in no apparent respiratory distress. No pallor, jaundice, cyanosis or thyromegaly. No jugular venous distention. No limb edema. VITAL SIGNS: Her heart rate was 61, blood pressure was 104/71, temperature was 97.7, respiratory rate was 28 and oxygen saturation was 94% on 15 liters by nasal cannula and 15 liters by nonrebreather mask. HEAD, EYES, EARS, NOSE, AND THROAT: Normocephalic, atraumatic. NECK: Supple. HEART: Showed normal first and second heart sounds, no gallop or murmur. CHEST: Shows central trachea, equal bilateral expansion, air entry, vesicular breath sounds with bilateral basal crepitation. I could not appreciate any rhonchi. ABDOMEN: Distended, soft, nontender. NEUROLOGIC: She is grossly intact. Her intake was 200, output was 3900. LABORATORY DATA: Her lab work this morning showed a white cell count of 8200, hemoglobin 14.9, hematocrit 44, MCV 93 and platelet count 274,000. Serum sodium is 136, potassium 4.6, chloride 102, bicarbonate 27, anion gap of 7, BUN 19, creatinine 0.6. Estimated GFR was 119. Glucose 239. Calcium was 8. Total bilirubin, AST, ALT, alkaline phosphatase were normal. Total protein 5.9, albumin 2.6. Her blood gases showed a pH of 7.4, pCO2 of 41, pO2 of 148, bicarbonate 25 and oxygen saturation was 99% on FiO2 of 100%. ASSESSMENT: 1. Acute hypoxic respiratory failure. 2. COVID-19 pneumonia with possible superimposed community-acquired pneumonia. 3. Polycystic ovary syndrome. 4. Probably steroid-induced hyperglycemia. PLAN: To continue the IV antibiotic, IV dexamethasone, IV remdesivir. Continue to monitor her blood sugar and adjust insulin as needed. DREA DR: Marshal TID: [id number]
[2021-01-05] MEDS: REMDESIVIR 100mg in NORMAL SALINE 250ML X 4 DAYS IV SCH (21:39)
[2021-01-06] VITALS (14 sets, daily range): BP systolic 85–112; BP diastolic 47–76
--- NOTE | 2021-01-06 06:42 | NUR ---
Pt reports not sleeping well Wednesday night d/t coughing and hip pain from lying in bed. Pt given PRN melatonin to aid sleep. Pt slept well overnight with supplemental O2 at 9L via HFNC, sats holding in the low 90's.
[2021-01-06] MEDS: INSULIN LISPRO 300 UNITS/3 ML VIAL. SQ SCH ×3 (08:00→18:13)
[2021-01-06] MEDS: FAMOTIDINE 20 MG TABLET PO SCH ×2 (11:01→20:36)
[2021-01-06] MEDS: ASCORBIC ACID 1,000 MG TABLET PO SCH ×3 (11:02→20:36)
[2021-01-06] MEDS: DEXAMETHASONE SOD PHOS 10 MG/ML VIAL. IV SCH (11:02)
[2021-01-06] MEDS: ZINC SULFATE 220 MG CAPSULE. PO SCH (11:02)
[2021-01-06] MEDS: ENOXAPARIN 40 MG/0.4 ML SYRINGE. SQ SCH (11:02)
[2021-01-06] MEDS: CHOLECALCIFEROL (VITAMIN D3) 1,000 UNIT TABLET PO SCH (11:02)
[2021-01-06] MEDS: LACTOBACILLUS RHAMNOSUS GG 1 CAPSULE. PO SCH ×2 (11:02→20:36)
[2021-01-06] MEDS ORDERED: BUDESONIDE 0.5 MG/2 ML NEBU NEB ONE (12:30)
[2021-01-06] MEDS ORDERED: SODIUM CHLORIDE 0.65% NASAL SPRAY 45ML BOTTLE. NS PRN (19:30)
--- NOTE | 2021-01-06 20:06 | NUR ---
Dr. Jacinto notified of elevated FSBS at 468. New orders for insulin placed. See eMAR.
[2021-01-06] MEDS: ACETAMINOPHEN/CODEINE 300/30MG TABLET PO SCH (20:35)
[2021-01-06] MEDS: AZITHROMYCIN 500 MG in IV NORMAL SALINE 250ML 250 ML IV SCH (20:35)
[2021-01-06] MEDS: MELATONIN 3 MG TABLET PO PRN (20:36)
[2021-01-06] MEDS: REMDESIVIR 100mg in NORMAL SALINE 250ML X 4 DAYS IV SCH (21:51)
[2021-01-06] MEDS: INSULIN GLARGINE SYRINGE. SQ SCH (21:53)
[2021-01-07] VITALS (12 sets, daily range): BP systolic 80–110; BP diastolic 50–79
--- NOTE | 2021-01-07 00:06 | PN ---
DATE: 01/06/2021 SUBJECTIVE: The patient is resting, slightly propped-up in bed, in no apparent distress. She is doing much better. She is now on only 6-1/2 liters of oxygen, maintaining her oxygen saturation at 95%. She continued to desaturate with minimal exertion. Denied any chest pain, shortness of breath, cough, phlegm or hemoptysis. PHYSICAL EXAMINATION: GENERAL: When I examined her, she looked well and was clearly in no apparent respiratory distress. No pallor, jaundice, cyanosis or thyromegaly. No jugular venous distention. No limb edema. VITAL SIGNS: Her heart rate was 78, blood pressure was 85/47, temperature was 98.8, respiratory rate was 26 and oxygen saturation was 95% on 6 liters oxygen. HEAD, EYES, EARS, NOSE, AND THROAT: Normocephalic, atraumatic. NECK: Supple. HEART: Showed normal first and second heart sounds, no gallop or murmur. CHEST: Shows central trachea, equal bilateral expansion, air entry, vesicular breath sounds with bilateral basal crepitation posteriorly. I could not appreciate any rhonchi. ABDOMEN: Distended, soft, nontender. NEUROLOGIC: She was grossly intact. LABORATORY DATA: Her lab work showed a white cell count of 8200, hemoglobin 15, hematocrit 44, MCV 92 and platelet count 274,000. Her chemistry was unremarkable. ASSESSMENT: 1. Acute hypoxic respiratory failure. 2. COVID-19 pneumonia with possible superimposed community-acquired pneumonia. 3. Polycystic ovary syndrome. 4. Probably steroid-induced hyperglycemia. PLAN: To continue with IV antibiotic. Continue with remdesivir and dexamethasone. Continue with monitor blood sugar. HENRY DR: Marshal TID: [id number]
[2021-01-07] MEDS: INSULIN LISPRO 300 UNITS/3 ML VIAL. SQ SCH ×6 (08:00→18:04)
[2021-01-07] MEDS: LACTOBACILLUS RHAMNOSUS GG 1 CAPSULE. PO SCH ×2 (11:07→20:12)
[2021-01-07] MEDS: DEXAMETHASONE SOD PHOS 10 MG/ML VIAL. IV SCH (11:07)
[2021-01-07] MEDS: FAMOTIDINE 20 MG TABLET PO SCH ×2 (11:07→20:12)
[2021-01-07] MEDS: ZINC SULFATE 220 MG CAPSULE. PO SCH (11:07)
[2021-01-07] MEDS: CHOLECALCIFEROL (VITAMIN D3) 1,000 UNIT TABLET PO SCH (11:07)
[2021-01-07] MEDS: ENOXAPARIN 40 MG/0.4 ML SYRINGE. SQ SCH (11:08)
[2021-01-07] MEDS: ASCORBIC ACID 1,000 MG TABLET PO SCH ×3 (11:09→20:12)
[2021-01-07] MEDS: MELATONIN 3 MG TABLET PO PRN (20:11)
[2021-01-07] MEDS: AZITHROMYCIN 500 MG in IV NORMAL SALINE 250ML 250 ML IV SCH (20:11)
[2021-01-07] MEDS: ACETAMINOPHEN/CODEINE 300/30MG TABLET PO SCH (20:12)
[2021-01-07] MEDS: INSULIN GLARGINE SYRINGE. SQ SCH (22:13)
[2021-01-08] VITALS (7 sets, daily range): BP systolic 94–106; BP diastolic 58–71
--- NOTE | 2021-01-08 01:38 | PN ---
DATE: 01/07/2021 SUBJECTIVE: The patient is resting, slightly propped up in bed, in no apparent respiratory distress. She is definitely doing better. She is now on only 3 liters of oxygen, maintaining her oxygen saturation at 96%. She, however, continued to desaturate on exertion. On questioning her, she denied any complaint, instead generally feels much better. PHYSICAL EXAMINATION: GENERAL: When I examined her, she looked well and was clearly in no respiratory distress. There was no pallor, jaundice, cyanosis or thyromegaly. No jugular venous distention. No limb edema. VITAL SIGNS: Her heart rate was 79, blood pressure was 102/64, temperature was 98.4, respiratory rate 24, and oxygen saturation was 98% on 3 liters of oxygen by nasal cannula. HEAD, EYES, EARS, NOSE AND THROAT: Normocephalic, atraumatic. NECK: Supple. HEART: Showed normal first and second heart sounds. No gallop, rub or murmur. CHEST: Showed central trachea, equal bilateral chest expansion, air entry, vesicular breath sounds with crepitation mostly in bilaterally posteriorly. I could not appreciate any rhonchi. ABDOMEN: Distended, soft, nontender. NEUROLOGIC: She is grossly intact. Her intake was 2170, output was 4400. LABORATORY DATA: Her blood sugar seems to be reasonably, though not optimally controlled. ASSESSMENT: 1. Acute hypoxic respiratory failure with much improved oxygen requirement, now is only on 3 liters of oxygen, maintaining her oxygen saturation on 96%. 2. COVID-19 pneumonia with possible superimposed community-acquired pneumonia. 3. Polycystic ovary syndrome. 4. Probable steroid-induced hyperglycemia. PLAN: Continue with IV antibiotic. Continue with remdesivir and dexamethasone. Continue to monitor her blood sugar. MARZENA/MATILDE DR: Marshal TID: [id number]
--- NOTE | 2021-01-08 04:27 | NUR ---
Pt has been maintaining sats in the upper 90's on 2L NC throughout noc. Pt reports feeling much better but voiced concern about not being able to get up without becoming SOA and has admittedly not been up out of bed in several days due to poor respiratory function. Pt encouraged to get up to chair with meals. PT eval and treat order in place, will see today.
[2021-01-08 06:32] LABS: HEMATOCRIT 47.5 % (36.0-47.0); RED BLOOD COUNT 5.16 x10^6/uL (3.50-5.40); RED CELL DISTRIBUTION WIDTH 12.7 % (11.5-14.5); WHITE BLOOD COUNT 10.5 x10^3/uL (4.0-11.0)
[2021-01-08 06:55] LABS: ALBUMIN 2.9 g/dL (3.4-5.0); ALBUMIN/GLOBULIN RATIO 0.9 (1.0-1.7); CALCIUM 8.5 mg/dL (8.5-10.1); CREATININE 0.6 mg/dL (0.6-1.0); TOTAL BILIRUBIN 0.5 mg/dL (0.2-1.0); TOTAL PROTEIN 6.3 g/dL (6.4-8.2)
[2021-01-08] MEDS: ASCORBIC ACID 1,000 MG TABLET PO SCH ×3 (10:05→19:53)
[2021-01-08] MEDS: DEXAMETHASONE SOD PHOS 10 MG/ML VIAL. IV SCH (10:05)
[2021-01-08] MEDS: LACTOBACILLUS RHAMNOSUS GG 1 CAPSULE. PO SCH ×2 (10:05→19:55)
[2021-01-08] MEDS: ZINC SULFATE 220 MG CAPSULE. PO SCH (10:05)
[2021-01-08] MEDS: CHOLECALCIFEROL (VITAMIN D3) 1,000 UNIT TABLET PO SCH (10:05)
[2021-01-08] MEDS: FAMOTIDINE 20 MG TABLET PO SCH ×2 (10:05→19:53)
[2021-01-08] MEDS: ENOXAPARIN 40 MG/0.4 ML SYRINGE. SQ SCH (10:05)
[2021-01-08] MEDS: INSULIN LISPRO 300 UNITS/3 ML VIAL. SQ SCH ×6 (10:06→17:35)
--- NOTE | 2021-01-08 11:48 | NUR ---
assisted pt to chair this morning with breakfast, pt ambulated well, not overtly sob, pt spo2 did drop to 86% with activity but came back up shortly after sitting. pt then worked with PT/OT, pt assisted back to bed by them. this RN then took out pt gallegos catheter.
--- NOTE | 2021-01-08 17:20 | NUR ---
pt blood glucose this evening, [address] Vigil as sliding scale does not go that high, told him what was ordered. he states he wants her to get a total of 12 units of short acting now, so the scheduled 10 plus just 2 more and dc the decadron
[2021-01-08] MEDS ORDERED: INSULIN LISPRO 300 UNITS/3 ML VIAL. SQ ONE (17:30)
[2021-01-08] MEDS: ACETAMINOPHEN/CODEINE 300/30MG TABLET PO SCH (19:55)
[2021-01-08] MEDS: AZITHROMYCIN 500 MG in IV NORMAL SALINE 250ML 250 ML IV SCH (20:00)
[2021-01-08] MEDS: INSULIN GLARGINE SYRINGE. SQ SCH (21:06)
--- NOTE | 2021-01-08 23:28 | PN ---
DATE: 01/08/2021 SUBJECTIVE: Feeling better. No new complaints. She is doing well on room air. OBJECTIVE FINDINGS: VITAL SIGNS: Blood pressure this morning is 106/55. She is afebrile, pulse 64 and regular, oxygen saturation 95% on 2 liters by nasal cannula. HEENT: Head is without trauma. Pupils are reactive. Sclerae nonicteric. Oropharynx clear. NECK: Supple, no bruits. LUNGS: Clear to auscultation. She is moving air well. CARDIOVASCULAR: Regular heart tones. ABDOMEN: Soft. EXTREMITIES: Without edema. NEUROLOGIC FUNCTION: Focally intact. SKIN: Warm and dry. ASSESSMENT: 1. A 30-year-old female with acute respiratory failure with hypoxemia, improved. 2. COVID-19 pneumonia. 3. Polycystic ovary syndrome. 4. Steroid-induced hyperglycemia. PLAN: 1. We are weaning down her oxygen supply. I am checking her room air sat. 2. Diet as tolerated. 3. Discharge planning for tomorrow. LUMA DR: Tyler TID: [id number]
[2021-01-09 03:09] VITALS: BP 121/79
--- NOTE | 2021-01-09 05:20 | NUR ---
Slept through the night with no apparent distress, VSS, Sats >92% on room air, respirations even and unlabored; up ad nitesh in room without difficulty; HS blood sugar 345 mg/dl, scheduled insulin given as per order; voices no needs or concerns at this time.
[2021-01-09 07:00] VITALS: BP 136/86
[2021-01-09] MEDS: INSULIN LISPRO 300 UNITS/3 ML VIAL. SQ SCH ×2 (08:00)
[2021-01-09] MEDS: LACTOBACILLUS RHAMNOSUS GG 1 CAPSULE. PO SCH (08:58)
[2021-01-09] MEDS: ASCORBIC ACID 1,000 MG TABLET PO SCH (08:58)
[2021-01-09] MEDS: ZINC SULFATE 220 MG CAPSULE. PO SCH (08:58)
[2021-01-09] MEDS: CHOLECALCIFEROL (VITAMIN D3) 1,000 UNIT TABLET PO SCH (08:58)
[2021-01-09] MEDS: FAMOTIDINE 20 MG TABLET PO SCH (08:58)
[2021-01-09] MEDS: ENOXAPARIN 40 MG/0.4 ML SYRINGE. SQ SCH (08:58)
[2021-01-09] MEDS ORDERED: CHOLECALCIFEROL (VITAMIN D3) 50,000 UNIT CAPSULE PO SCH (09:00)
--- NOTE | 2021-01-09 10:00 | DS ---
DATE OF DISCHARGE: 01/09/2021 FINAL DISCHARGE DIAGNOSES: 1. Acute respiratory failure with hypoxemia, improved. 2. Bilateral COVID-19 pneumonia. 3. Polycystic ovary syndrome. 4. Steroid-induced hyperglycemia. HISTORY OF PRESENT ILLNESS: The patient is a 30-year-old female, nonsmoker. She presented with shortness of breath and chest x-ray evidence of atypical pneumonia, bibasilar. She also had positive swab for COVID virus. PHYSICAL EXAMINATION: Please see the dictated note. PERTINENT LABORATORY AND X-RAY RESULTS: On this admission, her hemoglobin was 14.6 g/dL with a white count of 6700, repeated it was 10,500. Nonfasting blood sugars were drawn after discontinuation of her Decadron, her sugars were down to 111 and normal. Chest x-ray as noted. COURSE IN THE HOSPITAL: The patient was admitted. She did receive Decadron and remdesivir, supplemental oxygen. She required higher level of oxygen before getting better. Eventually by the sixth hospital day, her oxygen requirements were down to room air. She was maintaining adequate saturations. She was maintained at 92% on room air. On the seventh hospital day, her vital signs are stable. She was afebrile, oxygen saturation 92% on room air. She was discharged home. I gave her a work release through and including 01/13/2021, no prescription meds at this time is necessary. She was discharged then in stable condition with explicit drug and followup care. TOTAL DISCHARGE TIME SPENT: [address]: ANATOLY/diallo TID: [id number]
--- NOTE | 2021-01-09 10:41 | NUR ---
NURSING Pt discharged by Dr Vigil this morning at 1025. IV removed, tele et continuous pulse ox removed. Discharge orders covered with patient. She is returning home with no home medications. She has no oxygen requirements at this time. She is ambulatory in the room, but requests wheelchair for transport to front doors. All possessions sent with patient at time of discharge. Pt picks her up at front door.
== END 2021-01-09 10:41 | disposition home or self-care (01) | DRG 177 ==
LOC: ER 20:53 → ICU 01-02 17:30
PROVIDERS: ADMIT Internal Medicine; ATTEND Internal Medicine
PROC: XW033E5 Introduction of Remdesivir Anti-infective into Peripheral Vein, Percutaneous Approach, New Technology Group 5 (ICD-10-PCS; principal; 2021-01-02)
PROC: 5A0935A Assistance with Respiratory Ventilation, Less than 24 Consecutive Hours, High Flow/Velocity Cannula (ICD-10-PCS; 2021-01-06)
PROC: 5A0935A Assistance with Respiratory Ventilation, Less than 24 Consecutive Hours, High Flow/Velocity Cannula (ICD-10-PCS; 2021-01-07)
DX: U07.1 COVID-19 (principal); J12.82 Pneumonia due to coronavirus disease 2019; J96.01 Acute respiratory failure with hypoxia; E28.2 Polycystic ovarian syndrome; R53.81 Other malaise; R73.9 Hyperglycemia, unspecified; T38.0X5A Adverse effect of glucocorticoids and synthetic analogues, initial encounter; Z82.49 Family history of ischemic heart disease and other diseases of the circulatory system; Y92.89 Other specified places as the place of occurrence of the external cause; Z91.040 Latex allergy status
CPT/HCPCS: 36415; 36600; 71045; 80048; 80053; 80076; 82803; 82947; 83605; 84484; 85025; 85027; 87426; 93005; 94640; 94660; 96365; 96375; 96376; J0456; J0696; J1100; J1650; J1815; J2060; J2405; J7050; U0003; 97110; 99291-25